=== PATIENT | female | born 1965 ===

== ENCOUNTER 2016-07-26 06:02 | Observation (INO) | payer MEDICAID ==
[2016-07-21 10:20] VITALS: BMI 26.2
[2016-07-26] MEDS ORDERED: Propofol 10 mg/ml Inj (20 ML) ONE (07:02)
[2016-07-26] MEDS ORDERED: ePHEDrine 50 mg/ml Inj ONE (07:02)
[2016-07-26] MEDS ORDERED: Midazolam 2 MG/2 ML VIAL ONE (07:02)
[2016-07-26] MEDS ORDERED: Rocuronium 10 mg/ml (5 ml) ONE ×2 (07:03→08:23)
[2016-07-26] MEDS ORDERED: Phenylephrine 10 mg/ml Inj ONE (07:03)
[2016-07-26] MEDS ORDERED: Succinylcholine 200 mg/10 ml Inj IV ONE (07:03)
[2016-07-26] MEDS ORDERED: Lactated Ringer's 1,000 ML IV ONE ×2 (07:05→08:10)
[2016-07-26] MEDS ORDERED: Bupivacaine 0.25%-Epinephrine 1:200,000 (30 ml) Inj ONE (07:31)
[2016-07-26] MEDS ORDERED: Neostigmine Methylsulfate 3mg/3ml Syringe IV ONE (08:24)
[2016-07-26] MEDS ORDERED: Dexamethasone 4 mg/1 ml ONE (08:24)
[2016-07-26] MEDS ORDERED: DiphenhydrAMINE 50 mg/ml Inj ONE (08:39)
[2016-07-26] MEDS ORDERED: HEMOSTATIC MATRIX 10 ML DIS.NEEDLE TOP ONE ×2 (09:15→09:35)
[2016-07-26] MEDS ORDERED: Oxycodone/Acetaminophen 5/325 mg Tab PO PRN (10:15)
[2016-07-26] MEDS ORDERED: HYDROmorphone 0.5 mg/0.5 ml ISec IVP PRN (10:17)
[2016-07-26] MEDS ORDERED: HYDROmorphone 0.5 mg/0.5 ml ISec IVP ONE (10:55)
--- NOTE | 2016-07-26 11:06 | PCM.SURG1 ---
Surgeon's Initial Post Op Note - Surgeon's Notes Surgeon: yamil shrestha md Tree Sapper: angelita PGY1 Type of Anesthesia: General Endo, Local Pre-Operative Diagnosis: Chronic pelvic pain. Prolapse uterus. Abnormal uterine bleeding. Fibroid uterus. uterine polyps Operative Findings: bulky uterus, prolpase uterus epical prolapse. normal appearing ovareis. S/P BTL. normal bladder and ureters as per cystoscopy, ureters efluxing urine freely. . Detailed Operative Report. This is a 51 years old female with abnormal uterine bleeding, symptomatic fibroid uterus, chronic pelvic pain, and urinary urgency. The patient completed an extensive preoperative workup, which included an ultrasound, as well as a pap smear and an endometrial biopsy, chemistry and hematology studies. A decision was finally made to proceed with a total robotic assisted hysterectomy , bilateral salpingectomy, and vaginal vault suspension. A detailed description of this robotic procedure was given to the patient, all risks and benefits of the surgical modality was reviewed, printed material was also given to the patient regarding robotic surgery. The patient fully understood all the risks and benefits and elected to proceed with this proposed procedure. After proper consent was obtained from the patient was taken to the operating room, proper patient identification was completed. She was placed in dorsal lithotomy position; general anesthesia was induced without difficulty. Her legs were placed in adjustable Sb stirrups. Careful attention was placed not to over-flex or over-rotate the lower extremities at the hip or the knee joints. She was prepped and draped appropriately for robotic assisted hysterectomy. Gomes catheter was inserted under sterile conditions. A V-care uterine manipulator was inserted through the cervix and secured. Attention was turned to the patient's abdomen. Local anesthetic solutions of 0.25% Marcaine with epinephrine were utilized to infiltrate the skin prior to all abdominal skin incisions. A total of 15 mL of 0.25% Marcaine was utilized throughout the procedure. While tenting the abdominal wall, a Veres needle was inserted through the umbilicus and a pneumoperitoneum was obtained. Approximately 1 cm above the umbilicus in the midline, a 1 cm incision was made with a scalpel and a trocar and sleeve were introduced. A robotic camera was inserted and an initial survey of the patient's abdomen revealed an anteverted uterus enlarged in size. The uterus appeared severely adherent to the anterior abdominal wall. The patient was placed in Trendelenburg position ready for a da Noemi robotic system to be docked. 3 robotic ports were utilized for this procedure. The first robotic port was placed on the patient's right side approximately 5 cm above the right superior iliac crest where a small skin incision approximately 8 mm was made. The second robotic port was in the patient's left side approximately 5 cm superior to the left superior iliac crest. A small incision approximately 1 cm was made in the suprapubic region and an plumber assistant port was inserted. All robotic ports were approximately 8 mm in size, the plumber assistant and the camera ports were 1 cm in size. For the plumber assistant and camera ports we utilized the Versa-step trocar system. All trocars were inserted under direct visualization. The placement of the trocars was all accomplished under careful and meticulous placement under direct visualization. Following the placement of all trocars, the da Noemi robotic system was docked in a parallel method without difficulty. The following instruments were utilized for this procedure : the PK sealing device, a monopolar hamzah and finally a ProGrasp. Meticulous and careful lysis of adhesions and enterolysis was completed utilizing the monopolar hamzah and PK. Prior to the start of the hysterectomy, both ureters and their courses were visualized following the opening of the retroperitoneum and exploration of the ureters completed to avoid compromise of the ureters, following the exploration of the ureters, both ureters were peristalsing without difficulty. Prior to the start of the hysterectomy, Extensive lysis of adhesions and enterolysis was necessary to complete the procedure. The ovaries were released from the abdominal wall. The Uterus was released off the anterior abd wall and bladder in a meticulous way. The fallopian tubes were lysed off and excised and removed and sent to pathology. On the right side, the mass on the right ovary was meticulously dissected off and enucleated and sent to pathology. Extensive lysis of adhesions and enterolysis was a major portion of the procedure as the procedure could not be completed without lysis of adhesions and release of the uterus from the abdominal wall. The mass in the culdesac was excised and sent to pathology. On the patient's right side, the round ligament was identified cauterized and transected. The uteroovarian ligament was cauterized and transected. The broad ligament was divided all the way down to the utero cervical junction bladder flap was then created by transecting the visceroperitoneum over the bladder reflection. In a similar fashion, the left round ligament, uteroovarian ligament and broad ligament were cauterized sealed and transected, taken down to the level of the cervical uterine junction. Uterine vessels on both sides were sealed and transected. The Uterosacral ligaments were sealed and transected. The monopolar hamzah and PK were utilized to complete the colpotomy incision around the care vaginal ring. Excellent hemostasis was noted. The uterus, cervix and fallopian tubes were delivered transvaginaly through the colpotomy incision and sent to pathology for permanent analysis. The colpotomy incision was closed with 2-0 v LOC in a continuous fashion with excellent hemostasis. The vaginal vault suspension was achieved by suspending the vaginal cuff to the base of the uterosacral ligaments bilaterally. For uterosacral ligament suspension portion of the procedure, the ureters were once again identified to avoid possible compromise or kinking while suspending the vaginal vault. Maticulus dissection carried out to dissect out the ureters bilateraly to avoid kinking of the ureters with the suspension procedure. A 2-0 Goretex suture material was utilized to suspend the uterosacral ligaments from the base to the vaginal vault cuff incision including both anterior and posterior aspect of the colpotomy incision. Utilizing a 3-0 Monocryl suture, the peritoneum over the colpotomy incision and uterosacral ligaments was re-approximated in a continuous fashion. The abdomen was throughout irrigated and cleared of all clots and debris. FloSeal as well as Interceed was applied to the incision sites. Excellent hemostasis was again noted. All robotic and laparoscopic instruments removed under direct visualization. The robotic arms were undocked, and a da Noemi robotic system was wheeled away from the patient's bedside. Both plumber assistant and camera ports were closed at the fascial layer utilizing a 2-0 Vicryl suture serial in interrupted fashion. Pneumoperitoneum was reduced and all skin incisions were closed utilizing 4-0 Monocryl in a subcutaneous fashion. Dermabond was applied to all incisions. Due to the complexity of this hysterectomy, the extensive of the peritoneal and bowel adhesions and finally the distorted pelvic anatomy, a diagnostic cystoscopy was completed. The Gomes catheter was removed; the bladder was distended with approximately 350 cc of normal saline. A 30 cystoscope was introduced and a survey of the bladder anatomy was completed. Multiple bladder caclculi were noted. A grasper was inserted through the scope and the calculi were extracted and sent to pathology. The base, and the dome of the bladder appeared normal, both ureteral orifices appeared normal and were efluxing urine freely. The urethra appeared normal. A Gomes catheter was reinserted. Patient emerged from general anesthesia without difficulty, and was taken to recovery room in stable condition. Prior to incision the patient received antibiotics, prior to closure sponge lap and needle counts were correct x2. Post-Operative Diagnosis: Chronic pelvic pain. Prolapse uterus. Abnormal uterine bleeding. Fibroid uterus. uterine polyps Operation Performed: total robotic hysterectomy Bilateral salpingectomy. Uterosacral ligament suspenssion. Cystoscopy Specimen/Specimens Removed: Uterus cervix and tubes Estimated Blood Loss: EBL {In ML}: 20 Blood Products Given: N/A Drains Used: No Drains Post-Op Condition: Good Date of Surgery/Procedure: 07/26/16 Time of Surgery/Procedure: 12:08
[2016-07-26] MEDS: ceFAZolin 2 GM in Sodium Chloride 0.9% 100 ML IVPB SCH (17:13)
[2016-07-27] MEDS: ceFAZolin 2 GM in Sodium Chloride 0.9% 100 ML IVPB SCH ×2 (01:14→08:32)
[2016-07-27 05:31] VITALS: O2SAT 96
[2016-07-27 06:59] LABS: BASO % 0.1 % (0.0-2.0); EOS % 0.1 % (0.0-4.0); HEMATOCRIT 32.2 % (34.0-47.0); LYMPH # 3.2 K/uL (1.0-4.3); MEAN CELL VOLUME 91.2 fl (81.0-99.0); MEAN CORPUSCULAR HEMOGLOBIN 31.2 pg (27.0-31.0); MEAN CORPUSCULAR HGB CONC 34.2 g/dL (33.0-37.0); MEAN PLATELET VOLUME 8.8 fl (7.2-11.7); MONO # 1.2 K/uL (0.0-0.8); NEUT # 10.9 K/uL (1.8-7.0); NEUT % 70.8 % (50.0-75.0); RED CELL DISTRIBUTION WIDTH 12.6 % (11.5-14.5); WHITE BLOOD COUNT 15.3 K/uL (4.8-10.8)
[2016-07-27 07:22] VITALS: BP 104/63; PULSE 80; RESP 18; TEMP 98.2
[2016-07-27 07:30] LABS: ALB/GLOB RATIO 1.1 (1.0-2.1); ALKALINE PHOSPHATASE 76 U/L (38-126); ALT/SGPT 45 U/L (9-52); AST/SGOT 28 U/L (14-36); BILIRUBIN,TOTAL 0.8 mg/dl (0.2-1.3); BLOOD UREA NITROGEN 14 mg/dl (7-17); CALCIUM 8.2 mg/dL (8.4-10.2); CARBON DIOXIDE 26 mmol/L (22-30); CHLORIDE 108 mmol/L (98-107); GFR AFRICAN-AMERICAN > 60; GLUCOSE,RANDOM 95 mg/dL (65-105); POTASSIUM 3.8 MMOL/L (3.6-5.0); SODIUM 138 mmol/l (132-148); TOTAL PROTEIN 5.4 G/DL (6.3-8.2)
== END 2016-07-27 11:51 | disposition home or self-care (01) ==
LOC: H.OPSURG 06:02 → H.MEDSURG1 11:05
PROVIDERS: ADMIT Obstetrics & Gynecology; ATTEND Obstetrics & Gynecology
DX: N81.4 Uterovaginal prolapse, unspecified (principal); N93.9 Abnormal uterine and vaginal bleeding, unspecified; D25.9 Leiomyoma of uterus, unspecified; N84.0 Polyp of corpus uteri; N85.2 Hypertrophy of uterus; R39.15 Urgency of urination; N85.4 Malposition of uterus; N73.6 Female pelvic peritoneal adhesions (postinfective); N21.0 Calculus in bladder; N83.9 Noninflammatory disorder of ovary, fallopian tube and broad ligament, unspecified